=== PATIENT | male | born 2000 | race Caucasian/White ===

== ENCOUNTER → 2019-10-14 10:21 | Outpatient (POV) | payer SELFPAY | PROVIDERS: Visit Provider Dermatology | DX: Z00.00 Encounter for general adult medical examination without abnormal findings (principal) ==

== ENCOUNTER → 2022-06-22 11:15 | Outpatient (CLI) | payer OTHER, SELFPAY ==
[2022-06-22 11:48] LABS: Basophils # 0.1 K/mm3 (0-0.2); Eosinophils # 0.2 K/mm3 (0.0-0.4); Eosinophils % 4.4 % (0.1-12.0); Hematocrit 48.9 % (42.0-52.0); Hemoglobin 15.4 g/dL (14.1-18.0); Lymphocytes # 1.6 K/mm3 (0.7-4.5); Lymphocytes % 32.6 % (10-50); Mean Corpuscular HGB Conc 31.5 g/dL (31.8-35.4); Mean Corpuscular Hemoglobin 27.4 pg (27.0-31.2); Mean Platelet Volume 7.4 fl (7.4-10.4); Monocytes # 0.4 K/mm3 (0.1-1.0); Monocytes % 8.5 % (1.7-9.3); Neutrophils # 2.5 K/mm3 (1.8-7.8); Neutrophils % 53.5 % (37.0-80.0); Platelet Count 267 K/mm3 (142-424); Red Blood Count 5.63 M/mm3 (4.60-6.20); Red Cell Distribution Width 13.3 % (11.5-17.5); White Blood Count 4.7 K/mm3 (4.8-10.8)
[2022-06-22 13:29] LABS: 25-OH Vitamin D, Total 72.1 ng/mL (30-100)
[2022-06-22 13:41] LABS: Alanine Aminotransferase 35 U/L (12-78); Albumin Level 4.5 g/dl (3.5-5.0); Albumin/Globulin Ratio 1.8 (1.1-1.8); Alkaline Phosphatase 107 U/L (38-126); Anion Gap 10.9 mEq/L (5-15); Aspartate Amino Transferase 53 U/L (17-59); Bilirubin,Total 0.6 mg/dl (0.2-1.3); Blood Urea Nitrogen 23 mg/dl (9-20); Calcium 9.3 mg/dl (8.4-10.2); Carbon Dioxide 28 mmol/L (22.0-30.0); Chloride 105 mmol/L (98-107); Estimated Glomerular Filt Rate 93 ml/min (>60); GFR (African American) 112 ML/MIN (>60); Globulin 2.5 g/dL (1.3-3.2); Glucose 100 mg/dl (74-100); Potassium 3.9 mmoL/L (3.5-5.1); Sodium 140 mmol/L (136-145)
[2022-06-22 14:13] LABS: Thyroid Stimulating Hormone 0.91 uIU/mL (0.465-4.68)
[2022-06-22 14:32] LABS: Vitamin B12 699 pg/mL (239-931)
== END ==
PROVIDERS: PCP Family Medicine; Visit Provider Physician Assistant
DX: Z20.822 Contact with and (suspected) exposure to COVID-19 (principal)
CPT/HCPCS: 36415; 80053; 82306; 82607; 84443; 85025; C9803; U0003; U0005

== ENCOUNTER → 2022-11-13 12:04 | Outpatient (CLI) | payer OTHER, SELFPAY ==
--- NOTE | 2022-11-13 12:09 | XR_ITS ---
FINAL REPORT CLINICAL HISTORY: LEFT HAND PAIN FINDINGS: AP, oblique, and lateral views of the left hand were obtained. There is no prior exam for comparison. There is no acute fracture of the left hand. The joint spaces are preserved. The soft tissues are normal. IMPRESSION: No acute osseous abnormality of the left hand. Reviewed, Interpreted and Dictated by Annmarie Leon MD Transcribed by Ben John Authenticated and [facility]
--- NOTE | 2022-11-13 12:09 | XR_ITS ---
FINAL REPORT CLINICAL HISTORY: LEFT WRIST PAIN FINDINGS: AP, oblique, and lateral views of the left wrist were obtained. There is no prior exam for comparison. There is no acute fracture or dislocation. The joint spaces are preserved. The soft tissues are normal. IMPRESSION: No acute osseous abnormality of the left wrist. If pain persists, MR is recommended. Reviewed, Interpreted and Dictated by Annmarie Leon MD Transcribed by Ben John Authenticated and . [facility]
== END ==
PROVIDERS: PCP Family Medicine; Visit Provider Nurse Practitioner Family
DX: M79.642 Pain in left hand (principal); M25.532 Pain in left wrist
CPT/HCPCS: 73110; 73130

== ENCOUNTER 2023-12-17 10:34 | Outpatient (CLI) | payer OTHER, SELFPAY ==
--- NOTE | 2023-12-17 10:40 | XR_ITS ---
FINAL REPORT CLINICAL HISTORY: SHOULDER PAIN FINDINGS: LEFT CLAVICLE 2 views were obtained. There is no acute fracture or dislocation. Visualized joint spaces are normally aligned. Soft tissues are unremarkable. IMPRESSION: No acute bony abnormality. Reviewed, Interpreted and Dictated by Leland Koenig MD Transcribed by Jessica Viramontes Authenticated and [facility]
--- NOTE | 2023-12-17 10:40 | XR_ITS ---
FINAL REPORT CLINICAL HISTORY: SHOULDER PAIN FINDINGS: LEFT SHOULDER 3 views of the left shoulder were obtained. There is no acute fracture or dislocation. Visualized joint spaces are normally aligned. Soft tissues are unremarkable. IMPRESSION: No acute bony abnormality. Reviewed, Interpreted and Dictated by Leland Koenig MD Transcribed by Jessica Viramontes Authenticated and [facility]
== END 2023-12-17 23:59 ==
PROVIDERS: PCP Family Medicine; Visit Provider Nurse Practitioner Family
DX: M25.512 Pain in left shoulder (principal)
CPT/HCPCS: 73000; 73030

== ENCOUNTER 2025-03-22 19:59 | Emergency (ER) | payer OTHER, SELFPAY ==
[2025-03-22 20:10] VITALS: BP 118/79; PULSE 82; RESP 18; TEMP 36.8; O2SAT 98; BMI 23.1
--- NOTE | 2025-03-22 21:09 | ED_ITS ---
Discharge Plan Disposition Patient Disposition: Home, Self-Care Condition: Good Prescriptions Prescriptions: New oxycodone 5 mg tablet 5 mg PO Q8H PRN (Reason: pain) 3 Days Qty: 10 0RF Referrals Follow up/Referrals: Jay Wang MD [Primary Care Provider] - See instructions Kurtis Llamas DO [Staff Physician] - See instructions Activity Restrictions/Add. Instructions Additional Instructions/Restrictions: As we discussed, you broke your fibula on the left side. I placed a referral to the orthopedic doctor for you to follow-up. Please do not bear weight on that leg. Please return with any new or worsening symptoms. I prescribed pain medications for you to take as needed. Clinical Impressions Clinical Impression: Fracture of distal end of fibula Instructions Patient Instructions: DI for Ankle Fracture Print Language Print Language: Indonesian Discharge ED Provider: Jovanny Richardson Adult HPI General Chief complaint: Extremity Injury, Lower Stated complaint: Xray on Both Ankles; L one is worse Time Seen by Provider: 03/22/25 21:09 Mode of Arrival: Wheelchair Source of Information: Patient Description of Symptoms (Recalled from ER Triage Doc. by RN): Pt presents for evaluation of left ankle injury. Pt states [place] and [place] both ankles but is having pain and swellingin the left ankle. History of Present Illness HPI narrative: The patient presents with a chief complaint of bilateral lower extremity injuries after landing badly on a trampoline. The patient reports being unable to bear weight on either leg. The injury occurred when landing with both legs flared out, causing injury to both lower extremities. The right leg is reported as just sprained, while the left leg is suspected to be broken. The patient experiences pain from the joint all the way up through the leg, particularly on the outside, which they suspect might involve the fibula. The left leg is more severely affected than the right. The patient reports numbness in the heel and states they haven't touched their foot for the past hour and a half. Pain is present on both sides of the leg, but more pronounced on the left. When touched, the pain starts from a specific point and marches way down to another point. The patient describes hearing a simultaneous popping sound in both legs during the incident. The patient has a history of a previous fracture of the right fibula. They note that the current pain is similar to that previous fracture. The patient's surgical history includes treatment for the right leg fibula fracture, date unspecified. The patient was using a trampoline for recreational activities when the injury occurred. The patient reports bilateral ankle pain, worse on one side, and inability to bear weight. Neurologically, the patient reports numbness in the heel and foot. Please note that above description of symptoms, in this electronic medical record under categorization of recalled from ER triage doctor by RN are reflective of an initial nursing assessment, however, is not reflective of my full history and physical exam that was personally taken and clarified. Consequentially, this preceding description of symptoms, which may include the patient's categorized chief complaint in the EMR, do not reflect my personal clinical impression, and the ultimate description of history of present illness and patient stated complaints should be deferred to this section of the note. Unless stated otherwise or congruent with this section of the note, additional signs, symptoms, or incongruence should be interpreted as inaccurate with my clinical impression. Related Data Previous Rx's ?Medication ?Instructions ?Recorded oxycodone 5 mg tablet 5 mg PO Q8H PRN pain 3 days #10 03/22/25 tabs Allergies Allergy/AdvReac Type Severity Reaction Status Date / Time NO KNOWN ALLERGIES Allergy Uncoded 10/16/17 15:21 [facility] Disclaimer: The information contained in this section may have been updated after the patient was seen, as this information can be updated by other users. Social History Smoking Status: Current some day smoker alcohol intake: former current occupational status: other Travel in the last 8 weeks?: None ROS Obtained: Yes other As per HPI Physical Exam General General appearance: alert and in no apparent distress Head Head exam: atraumatic and normocephalic Eye Eye exam: Present normal appearance Neck Neck exam: Present normal inspection Chest Chest inspection: Present normal inspection and symmetric chest wall rise Respiratory Respiratory exam: Present normal lung sounds bilaterally; Absent respiratory distress Cardiovascular Cardiovascular exam: Present regular rate and normal rhythm Abdominal Exam Abdominal exam: Present soft Neurological Exam Neurological exam: Present alert and oriented X3 Psychiatric Psychiatric exam: Present normal affect and normal mood Skin Skin exam: Present warm and dry Other Other exam information: Tenderness to palpation over bilateral lateral malleoli. Distally neurovascularly intact. No clinical evidence of injury elsewhere. Medical Decision Making Medical Records Medical records reviewed: Yes I reviewed the patient's medical records. Screening: Per USPSTF and CDC recommendations, given the prevalence of disease in our region, it is our hospital?s policy to screen for HIV and viral Hepatitis for all patients aged 18 and over and those with ongoing risk factors. Pierre Inquiry Pt receiving controlled substance: Yes Pierre was queried for this patient: Yes Risks and benefits of using a controlled substance: were discussed with pt by me Vital Signs: 03/22/25 20:10 03/22/25 23:24 Temperature 98.3 F 97.9 F Temperature Source Temporal Artery Scan Temporal Artery Scan Pulse Rate 81 Pulse Rate [Right] 82 Respiratory Rate 18 18 Blood Pressure 127/74 Blood Pressure [Right Arm] 118/79 Blood Pressure Mean [Right Arm] 92 Blood Pressure Source Automatic Cuff Blood Pressure Source [Right Arm] Automatic Cuff Blood Pressure Position Sitting Blood Pressure Position [Right Arm] Sitting 02 Sat by Pulse Oximetry 98 Oxygen Delivery Method Room Air Room Air Orders (Tests/Meds): ED MEDICATIONS Discontinued Medications Generic Name Dose Route Start Last Admin Trade Name Freq PRN Reason Stop Dose Admin Ibuprofen 600 mg 03/22/25 21:12 03/22/25 21:18 Ibuprofen 600 Mg Tablet PO 03/22/25 21:13 600 mg ONCE ONE Administration ORDERS Category Date Time Status XR ankle LT min 3V Stat Exams 03/22/25 21:18 Completed XR ankle RT min 3V Stat Exams 03/22/25 21:18 Completed XR tibia fibula LT 2V Stat Exams 03/22/25 21:18 Completed Medical Decision Narrative: Patient with history and exam per above presenting for evaluation of ankle injury Diagnoses considered include fracture, sprain, no clinical evidence to warrant further investigation beyond history and physical exam for etiologies such as vascular injury, nerve injury, intracranial injury. ED workup and treatment included: ED MEDICATIONS Discontinued Medications Generic Name Dose Route Start Last Admin Trade Name Freq PRN Reason Stop Dose Admin Ibuprofen 600 mg 03/22/25 21:12 03/22/25 21:18 Ibuprofen 600 Mg Tablet PO 03/22/25 21:13 600 mg ONCE ONE Administration ORDERS Category Date Time Status XR ankle LT min 3V Stat Exams 03/22/25 21:18 Completed XR ankle RT min 3V Stat Exams 03/22/25 21:18 Completed XR tibia fibula LT 2V Stat Exams 03/22/25 21:18 Completed Imaging was independently visualized and interpreted by me, significant for lateral malleolar fracture Please refer to radiology report for full details. Patient was placed in splint and instructed to follow-up with orthopedic surgery. I discussed my clinical impression with patient and answered all questions. At this time, the evidence for any other entities in the differential is insufficient to warrant any further testing or ED observation. This was explained to the patient. The patient was advised that persistent or worsening symptoms require further evaluation. Critical Care Critical Care Time Critical Care Time: No
--- NOTE | 2025-03-22 21:16 | PC.NURSE ---
Kevin Richardson MD to bedside to assess patient.
[2025-03-22] MEDS: IBUPROFEN 600 MG TABLET PO (21:18)
--- NOTE | 2025-03-22 21:18 | XR_ITS ---
PROCEDURE INFORMATION: Exam: XR Left Ankle Exam date and time: 03/22/2025 9:36 PM Age: 24 years old Clinical indication: Injury or trauma; Other: Eversion injury on trampline, lateral mal pain TECHNIQUE: Imaging protocol: Radiologic exam of the left ankle. Views: 3 or more views. Total images: 3 COMPARISON: No relevant prior studies available. FINDINGS: Bones/joints: Acute minimally displaced oblique fracture of the distal fibula above the lateral malleolus. The ankle mortise is maintained. No joint dislocation. Small tibiotalar joint effusion. Unremarkable hindfoot anatomy. Soft tissues: Moderate lateral soft tissue swelling. IMPRESSION: 1. Acute minimally displaced oblique fracture of the distal fibula. 2. Tibiotalar joint effusion 3. Moderate lateral soft tissue swelling.
--- NOTE | 2025-03-22 21:18 | XR_ITS ---
PROCEDURE INFORMATION: Exam: XR Left Tibia and Fibula Exam date and time: 03/22/2025 9:38 PM Age: 24 years old Clinical indication: Injury or trauma; Fall; Blunt trauma; Ankle; Left; Additional info: Eversion injury on trampline, lateral mal pain TECHNIQUE: Imaging protocol: Radiologic exam of the left tibia and fibula. Views: 2 views. Total images: 3 COMPARISON: CR XR ANKLE LT MIN 3V 03/22/2025 9:36 PM FINDINGS: Bones/joints: Acute minimally displaced oblique fracture of the distal fibula. No additional fracture or joint dislocation. Unremarkable joint spaces. Small tibiotalar joint effusion. No concerning bone lesions. Soft tissues: Moderate lateral soft tissue swelling at the ankle. IMPRESSION: Acute minimally displaced oblique fracture of the distal fibula.
--- NOTE | 2025-03-22 21:18 | XR_ITS ---
PROCEDURE INFORMATION: Exam: XR Right Ankle Exam date and time: 03/22/2025 9:35 PM Age: 24 years old Clinical indication: Injury or trauma; Other: Eversion injury on trampline, lateral mal pain TECHNIQUE: Imaging protocol: Radiologic exam of the right ankle. Views: 3 or more views. Total images: 3 COMPARISON: No relevant prior studies available. FINDINGS: Bones/joints: No acute fracture or joint dislocation. Probable small tibiotalar joint effusion. Corticated ossicle at the lateral malleolus. Ankle mortise is maintained. No concerning bone lesions. Soft tissues: Mild lateral soft tissue swelling. IMPRESSION: 1. No acute osseous abnormality. 2. Small tibiotalar joint effusion. 3. Mild lateral soft tissue swelling.
--- NOTE | 2025-03-22 21:45 | PC.NURSE ---
Pt to x-ray by wheelchair.
--- NOTE | 2025-03-22 21:52 | PC.NURSE ---
Pt returns from x-ray
[2025-03-22 23:24] VITALS: BP 127/74; PULSE 81; RESP 18; TEMP 36.6; O2SAT 100
== END 2025-03-22 23:27 | disposition home or self-care (01) ==
PROVIDERS: Emergency Provider Emergency Medicine; PCP Family Medicine
DX: S82.432A Displaced oblique fracture of shaft of left fibula, initial encounter for closed fracture (principal); M25.471 Effusion, right ankle; M25.572 Pain in left ankle and joints of left foot; X50.1XXA Overexertion from prolonged static or awkward postures, initial encounter; Y93.44 Activity, trampolining
CPT/HCPCS: 73590; 73610; 99284

== ENCOUNTER 2025-03-25 12:05 | Outpatient (CLI) | payer OTHER, SELFPAY ==
--- NOTE | 2025-03-25 12:17 | ECG_ITS ---
APPROVED REPORT Exam: Resting ECG HR:69 bpm ECG Measurements Heart Rate 69 AXES NM 160 P 56 QRSd 104 QRS 133 QT 361 T 56 QTc 380 Conclusion SINUS RHYTHM LEFT POSTERIOR FASCICULAR BLOCK [QRS AXIS > 109, INFERIOR Q] ABNORMAL ECG UNCONFIRMED REPORT Electronically signed by : Rosalio Lassiter MD 03/26/2025 07:30:23
[2025-03-25 12:48] LABS: Basophils % 0.5 % (0.1-2.0); Eosinophils # 0.1 Kmm3 (0.0-0.4); Eosinophils % 0.8 % (0.1-12.0); Hematocrit 49.2 % (42.0-52.0); Hemoglobin 16.5 g/dL (14.1-18.0); Immature Granulocytes # 0.02 10^3uL; Immature Granulocytes % 0.3 %; Lymphocytes % 12.4 % (10-50); Mean Corpuscular HGB Conc 33.5 g/dL (31.8-35.4); Mean Corpuscular Hemoglobin 27.4 pg (27.0-31.2); Mean Corpuscular Volume 81.6 fl (80-94); Mean Platelet Volume 8.9 fl (7.4-10.4); Monocytes # 0.4 K/mm3 (0.1-1.0); Monocytes % 5.4 % (1.7-9.3); Neutrophils # 6.4 K/mm3 (1.8-7.8); Neutrophils % 80.6 % (37.0-80.0); Nucleated Red Blood Cells # 0 10^3/uL; Nucleated Red Blood Cells % 0 %; Platelet Count 295 K/mm3 (142-424); Red Blood Count 6.03 M/mm3 (4.60-6.20); Red Cell Distribution Width 12.1 % (11.5-17.5); Red Cell Distribution Width-SD 35.9 fL; White Blood Count 7.9 K/mm3 (4.8-10.8)
[2025-03-25 13:29] LABS: Alanine Aminotransferase 22 U/L (12-78); Albumin Level 5.2 g/dl (3.5-5.0); Albumin/Globulin Ratio 1.9 (1.1-1.8); Alkaline Phosphatase 84 U/L (38-126); Anion Gap 14.2 mEq/L (5-15); Aspartate Amino Transferase 29 U/L (17-59); Bilirubin,Total 0.6 mg/dl (0.2-1.3); Blood Urea Nitrogen 14 mg/dl (9-20); Calcium 9.8 mg/dl (8.4-10.2); Carbon Dioxide 28 mmol/L (22.0-30.0); Chloride 101 mmol/L (98-107); Estimated Glomerular Filt Rate 91 ml/min (>60); GFR (African American) 110 ML/MIN (>60); Globulin 2.7 g/dL (1.3-3.2); Glucose 97 mg/dl (74-100); Potassium 4.2 mmoL/L (3.5-5.1); Sodium 139 mmol/L (136-145); Total Protein,Serum 7.9 g/dl (6.3-8.2)
[2025-03-30 22:30] LABS: 1,25 Dihydroxy Vitamin D 68 pg/mL (.); 1,25-Dihydroxy, Vitamin D-2 <10 pg/mL (.); 1,25-Dihydroxy, Vitamin D-3 65 pg/mL (.)
== END 2025-03-25 23:59 | disposition home or self-care (01) ==
LOC: LAB 12:06
PROVIDERS: PCP Family Medicine; Visit Provider Podiatrist
DX: Z01.810 Encounter for preprocedural cardiovascular examination (principal); Z01.812 Encounter for preprocedural laboratory examination; I44.5 Left posterior fascicular block; R94.31 Abnormal electrocardiogram [ECG] [EKG]
CPT/HCPCS: 36415; 80053; 82652; 85025; 93005

== ENCOUNTER 2025-03-26 11:32 | Day surgery (SDC) | payer OTHER, SELFPAY ==
[2025-03-26] VITALS (9 sets, daily range): BP systolic 110–132; BP diastolic 47–85; PULSE 60–96; RESP 16–22; TEMP 36.6–36.9; O2SAT 94–100; BMI 22.8
[2025-03-26] MEDS: LACTATED RINGERS 1000ML 1,000 ML 25 ML IV (13:01)
--- NOTE | 2025-03-26 13:09 | P.PNANES_ITS ---
[facility] Disclaimer: The information contained in this section may have been updated after the patient was seen, as this information can be updated by other users. Medical History (Updated 03/26/25 @ 12:45 by Shelby Horvath RN) Asthma History of gastroesophageal reflux (GERD) Tinnitus of both ears Family History (Updated 03/26/25 @ 12:45 by Shelby Horvath RN) Other No significant family history Social History (Updated 03/26/25 @ 12:46 by Shelby Horvath RN) Smoking Status: Current some day smoker smoking status start date: rec marijuana alcohol intake: current substance use type: denies use current occupational status: employed Travel in the last 8 weeks?: None leisure activities: sports and exercise physical activity: walking and other details: [facility] Anesthesia Checklist Patient Identification Patient Identification: Arm Band Structural Data Admitted From: Home Planned Operative Procedure/s: ORIF Left Ankle Consent for Planned Operative Procedure(s) Verified: Yes Verified Documents: Surgical Consent and History and Physical NPO Status Verified Time NPO: 00:00 Additional verifications Anesthesia Reactions: No Hx Blood Transfusions: No Blood Transfusion Reaction: No Airway Assessment Mallampati Score:: Class II C-Spine Mobility Assessed: Yes TMJ Mobility Assessed: Yes Dentition: Good Dentition Neurological Assessment Level of Consciousness: Awake, Alert and Appropriate Anesthesia Plan Anesthesia Risk discussed: Yes Anesthesia Plan: Verified ASA Class: II Anesthesia Type: General w/block (Left Popliteal/Adductor Canal Nerve Block. Risks/benefits explained. Pt verbalized understanding)
[2025-03-26] MEDS: CEFAZOLIN SODIUM 2 GM in 0.9 % SODIUM CHLORIDE 100 ML IV (15:00)
--- NOTE | 2025-03-26 16:20 | XR_ITS ---
FINAL REPORT CLINICAL HISTORY: orif left ankle 1.19 MGY 0.29 FLUORO TIme FINDINGS: FLUOROSCOPY LESS THAN 1 HOUR HISTORY: Fluoroscopy guidance. Fluoroscopic guidance was provided for ORIF left ankle. 2 spot films were obtained. A total of 0:29 minutes of fluoroscopy time were used. Total DAP: 1.19 mGy IMPRESSION: As above. Reviewed, Interpreted and Dictated by Leland Koenig MD Transcribed by Tiffany Jones Authenticated and [facility]
--- NOTE | 2025-03-26 16:55 | EXP.ANES.I ---
[facility] Anesthesia Record Part I Anesthesia Record I Intake, IV Amount: 850 Hydration: Adequate Estimated blood loss (mL): 19 Urine output (mL): 0 Blood Products used (#): none Blood Pressure: 110/47 SaO2: 94 Pulse Rate: 96 Airway Patency: Patent Respiratory Rate: 22 Temperature: 97.8 F Patient is:: Drowsy and Stable Stable to PACU at:: 16:46
--- NOTE | 2025-03-26 16:56 | XR_ITS ---
PROCEDURE INFORMATION: Exam: XR Left Ankle Exam date and time: 03/26/2025 4:54 PM Age: 24 years old Clinical indication: Device placement; Joint fixation hardware; Prior surgery; Surgery date: Post-operative (0-2 days); Surgery type: L ankle orif TECHNIQUE: Imaging protocol: Radiologic exam of the left ankle. Views: 1 or 2 views. COMPARISON: CR XR ANKLE LT MIN 3V 03/22/2025 9:36 PM FINDINGS: Tubes, catheters and devices: Study quality limited due to overlying splint/cast material. Bones/joints: Patient is status post ORIF with sideplate with multiple screws securing the previously identified oblique fracture of the distal fibular metadiaphysis. Alignment appears improved and near anatomic Soft tissues: Soft tissues are not adequately evaluated due to overlying artifact. Skin greg are seen involving the anteromedial periarticular ankle soft tissues. IMPRESSION: Status post ORIF of the oblique acute fracture of the distal fibula showing improved and near anatomic alignment.
--- NOTE | 2025-03-26 16:57 | P.OP_ITS ---
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 Has a right ankle sprained and was counseled for weightbearing as tolerated in fracture boot due to strict nonweightbearing on the left, increased pressure to the right secondary due to that. X-rays reviewed and discussed with the patient. Conservative treatment discussed but not recommended due to the fact that he is a very athletic male. DOI: 03/22/25. We discussed surgery to quickest return to sports/activity. Patient understands the goal is to return to all athletic injury but he may have some restrictions in his abil ity to ski. Discussed hardware may need to be removed in the future if it irritates ski boot. All risks and benefits were discussed including but not limited to: damage to blood vessels and nerves, bleeding, infection, wound complications, delayed, mal or non-union of bone, post-traumatic arthritis/stiffness, need for further surgery, implant failure, need for removal of implant, prolonged or permanent swelling of the extremity, prolonged or permanent pain or deformity, CRPS/RSD, DVT/PE, and anesthetic complications including . Denies cigarette/tobacco abuse. Occasional marijuana. No gua rantees were given. All questions fully answered. The patient verbalized understanding and agreed to proceed with surgery. Verbal and written consent was obtained. *Discussed biggest challenge patient will likely face is the fact that he has bilateral ankle injuries. He can weight-bear as tolerated to the right ankle sprain protected in the tall fracture boot. He needs to be strict nonweightbea ring to the left. If he has mobility issues and is on able to tolerate full weightbearing to the right with the crutches, he may need a wheelchair. Operative findings:: Left ankle fracture noted. Small ankle arthrotomy incision noted over the medial ankle gutter, hematoma noted. Separate incision made over the deltoid ligament full-thickness down to the ligament. There are some shredding of the ligament but no full-thickness tear or rupture. On the lateral ankle spiral oblique distal fibular fracture noted with 4 mm displacement. The tissue had significant synovitis. More than you would expect from an acute ankle fracture. Suspect the synovitis is related to history of ankle sprains, ankle injury and possible peroneal tendinitis/tenosynovitis. A piece of the synovitic tissue was removed and sent for pathology specimen. Distal fibular fracture was reduced. Bone was hard and normal in texture and color, no evidence of infection. Prognosis: fair. Operative note:: On this date and time patient was deemed an appropriate surgical candidate. Pre- op left regional nerve block performed by anesthesia. With informed consent signed, the patient was taken to the operating theater. The patient was positioned supine. General anesthesia was induced. Tourniquet was applied to the left mid calf at 225 mmHg. The left lower extremity was prepped and draped in normal sterile fashion. IV Ancef given. Left ankle arthrotomy with synovectomy: A linear incision was made over the anterior medial ankle gutter full-thickness down to the level of the bone. There is blood and hematoma noted. Synovitic tissue noted around the ankle joint which was debrided with 15 blade and forceps. Wound was flushed with saline. Left deltoid ligament evaluation/repair: A separate incision was made directly over the inferior medial malleolus over the deltoid ligament. Full-thickness down to the level of the ligament. There is hematoma and clotted blood noted in the incision likely secondary to recent trauma and deltoid ligament sprain. The ligament did have some partial tearing but no full-thickness tear or rupture appreciated. Incisions were flushed with saline. Bleeding controlled. Prior to closure, a piece of the amniotic graft utilized below was inserted over the deltoid ligament to prevent scarring and adhesions. Vicryl used to reapproximate subcutaneous tissue, nylon used to reapproximate skin. Left Distal Fibula Fracture ORIF: Attention was directed to the lateral ankle where intra-op fluoroscopy was utilized to eusebio anatomical landmarks. A linear incision was made over the lateral ankle. Dissection was carried thru skin and subcutaneous tissue with care taken to maintain surgical hemostasis and safely retract neurovascular structures. Dissection was then carried thru deep fascia to bone. The peroneal tendons were visible posteriorly and laterally, and safely retracted during procedure. Of note there was synovitis throughout the lateral ankle and peroneal tendons. A piece was removed with 15 blade and forceps and sent to pathology as a tissue specimen. The fibula was clearly visualized and the spiral oblique fracture was identified. The bone was mildly angulated, displaced and shortened. Utilizing a curette the fracture fragments were cleaned. Please note that there was not any callus formation. The wound was flushed with copious amounts of normal sterile saline. A curette was used to debride the fibrosis tissue from the fracture site. At this point reduction forceps were utilized compressing the distal spiral oblique fibula fracture. Intraoperative fluoroscopy was utilized to check pre-and post-reduction AP and lateral views. A lag, intrafrag screw was inserted in standard technique. A Vilex anatomic distal fibula plate was applied and temporarily fixed. Again x- ray was used to check the reduction and adequate reduction was noted with alignment of the ankle joint. 3 locking screws were utilized distally to secure the plate to the fibula. Clamp removed. Intraoperative fluoroscopy was utilized once again to check position reduction it was deemed to be appropriate and stable. 2 non locking screws were utilized to suck the plate flush to the bone. 2 more locking screws were then inserted proximally to secure the plate to the proximal section of the fibula. An external stress test performed. No gross instability, medial clear space or syndesmotic widening. Negative anterior drawer. The wound was flushed with copious amounts normal sterile saline. The s uperficial peroneal nerve was identified and safely extracted throughout the case. Due to the amount of synovtic and inflammatory tissue and the nerve, decision made to insert amniotic graft to prevent tissue scarring/adhesions, reduce nerve inflammation and help prevent wound healing complications. Vicryl was then utilized to reapproximate the deep and subcutaneous tissue in a running fashion. Nylon ans skin greg were used to reapproximate the skin. The tourniquet was deflated at 53 minutes and immediate hyperemic response was noted to the digits. The wounds were cleansed. Xeroform, dry sterile dressing was then applied followed by a below knee modified Campbell posterior splint. The patient was awoken from anesthesia and transfer to recovery with vital signs stable and neurovascular status intact. Patient appeared to tolerate procedure and anesthesia well without complication. Materials: Vilex extra small fibula plate, 3.5mm locking screws x 5, 3.5mm non locking x 3, Vilex PalinGen Membrace x1 (4x4cm) Discharge/Plan: Patient is to maintain splint clean dry and intact. Polar pack/ice behind the knee and elevate on two pillows. Non weight bearing to LLE with crutches/RKS (FWB to RLE in fracture boot). Obtain post op films, 3 views left ankle. Follow up in one week for skin check, dressing/splint change. Tourniquet time (min): 53 Condition: stable Disposition: same day Specimens:: Left ankle tissue pathology Complications:: None
--- NOTE | 2025-03-27 09:17 | P.PNANES_ITS ---
[facility] Anesthesia Record Part II Anesthesia Record Part II Discharge Time: 17:37 Destination: Surgical Day Care (OP Surgery) PACU nurse assessment reviewed?: Yes Patient Condition:: Good Anesthesia Complications:: None Swallowing reflex intact?: Yes Airway Patency: Patent Cyanosis?: No Blood Pressure: 119/75 SaO2: 100 Respiratory Rate: 18 Pulse Rate: 68 Temperature: 98.4 F Mental Status: Alert & Oriented Pain level:: 0 Nausea and/or vomitting:: None Intake, IV Amount: 0 Hydration: Adequate
[2025-03-27 09:19] VITALS: BP 119/75; PULSE 68; RESP 18; TEMP 36.9; O2SAT 100
== END 2025-03-26 17:50 | disposition home or self-care (01) ==
PROVIDERS: PCP Family Medicine; Visit Provider Podiatrist
PROC: (CPT 27625; principal; 2025-03-26 14:15)
DX: S82.832A Other fracture of upper and lower end of left fibula, initial encounter for closed fracture (principal); S93.422A Sprain of deltoid ligament of left ankle, initial encounter; M65.972 Unspecified synovitis and tenosynovitis, left ankle and foot; W09.8XXA Fall on or from other playground equipment, initial encounter; Y93.89 Activity, other specified; Y92.39 Other specified sports and athletic area as the place of occurrence of the external cause
CPT/HCPCS: 27625; 27695; 27792; 64445; 64447; 73600; 73610; 76000; 96374; C1713; J0690; J1100; J2250; J2405; J2704; J3010; J7120; Q4173

== ENCOUNTER 2025-04-23 09:29 | Outpatient (CLI) | payer OTHER, SELFPAY ==
--- NOTE | 2025-04-23 09:33 | XR_ITS ---
FINAL REPORT CLINICAL HISTORY: Left Ankle Post Op COMPARISON: 03/26/2025 FINDINGS: Three views of the left ankle show post ORIF changes of the distal fibula. There is no oblique fracture of the distal fibula faintly seen without displacement. Remaining ankle mortise is intact. IMPRESSION: Post ORIF changes of healing distal fibular fracture. Reviewed, Interpreted and Dictated by Tricia Muhammad MD Transcribed by Tiffany Jones Authenticated and [facility]
== END 2025-04-23 23:59 | disposition home or self-care (01) ==
LOC: RAD 09:30
PROVIDERS: PCP Family Medicine; Visit Provider Podiatrist
DX: S99.912D Unspecified injury of left ankle, subsequent encounter (principal); X58.XXXD Exposure to other specified factors, subsequent encounter
CPT/HCPCS: 73610

== ENCOUNTER 2025-05-07 09:01 | Outpatient (CLI) | payer OTHER, SELFPAY ==
--- NOTE | 2025-05-07 09:07 | XR_ITS ---
FINAL REPORT CLINICAL HISTORY: post left ankle surgery evaluation COMPARISON: 04/23/2025 FINDINGS: Left ankle Two views were obtained. There are sideplate and screws securing an oblique nondisplaced fracture of the fibula. Fracture lines remain visible. The mortise is intact. IMPRESSION: Postsurgical changes as above. Reviewed, Interpreted and Dictated by Leland Koenig MD Transcribed by Magali Vazquez Authenticated and [facility]
== END 2025-05-07 23:59 | disposition home or self-care (01) ==
LOC: RAD 09:02
PROVIDERS: PCP Family Medicine; Visit Provider Podiatrist
DX: S82.435D Nondisplaced oblique fracture of shaft of left fibula, subsequent encounter for closed fracture with routine healing (principal); S93.422D Sprain of deltoid ligament of left ankle, subsequent encounter; X58.XXXD Exposure to other specified factors, subsequent encounter
CPT/HCPCS: 73610

== ENCOUNTER 2025-05-14 10:00 | Outpatient (CLI) | payer OTHER, SELFPAY | END 2025-05-14 23:59 | disposition home or self-care (01) | LOC: LAB.DROPOF 05-15 13:25 | PROVIDERS: PCP Podiatrist; Visit Provider Podiatrist | DX: T81.49XA Infection following a procedure, other surgical site, initial encounter (principal); Z98.890 Other specified postprocedural states | CPT/HCPCS: 87070; 87077; 87205 ==

== ENCOUNTER 2025-06-10 15:57 | Outpatient (RCR) | payer OTHER, SELFPAY | END 2025-06-10 23:59 | disposition home or self-care (01) | LOC: PT 15:57 | PROVIDERS: Visit Provider Podiatrist | DX: S93.422D Sprain of deltoid ligament of left ankle, subsequent encounter (principal) | CPT/HCPCS: 97162 ==

== ENCOUNTER 2025-07-01 14:33 | Outpatient (CLI) | payer OTHER, SELFPAY ==
--- NOTE | 2025-07-01 14:36 | XR_ITS ---
FINAL REPORT CLINICAL HISTORY: evaluation of postoperative left ankle COMPARISON: 03/26/2025 FINDINGS: LEFT ANKLE Three views demonstrate a sideplate and screws securing the distal fibula. Hardware appears intact. The ankle mortise is intact. The soft tissues are unremarkable. [place] and overlying cast have been removed. IMPRESSION: Postoperative changes as above. Reviewed, Interpreted and Dictated by Leland Koenig MD Transcribed by Tiffany Jones Authenticated and [facility]
== END 2025-07-01 23:59 | disposition home or self-care (01) ==
LOC: RAD 14:34
PROVIDERS: PCP Family Medicine; Visit Provider Podiatrist
DX: S93.422A Sprain of deltoid ligament of left ankle, initial encounter (principal); Z98.890 Other specified postprocedural states
CPT/HCPCS: 73610